=== PATIENT | female | born 1970 | race Caucasian/White ===

== ENCOUNTER 2017-12-12 06:55 | Day surgery (SDC) | payer BC ==
[~2017-12-12 06:55] MED LIST: Cefuroxime 10 MG/ML SYRINGE EYELF SCH; Lidocaine 1% PF 2 ML SDV INJECT SCH; Pilocarpine 4% Ophth Soln 15 ML Bot EYELF SCH
[2017-12-12] MEDS: Polymyxin B/Trimethoprim 10 ML Bottle EYELF SCH ×3 (07:13→08:36)
[2017-12-12] MEDS: Brimonidine 0.2% Ophth Soln 5 ML Bottle EYELF SCH ×3 (07:16→08:36)
[2017-12-12] MEDS: Phenylephrine 2.5% Ophth Soln 2 ML Bot EYELF SCH ×7 (07:20→08:22)
[2017-12-12] MEDS: Tropicamide 1% Ophth Soln 15 ML Bottle EYELF SCH ×5 (07:25→08:23)
--- NOTE | 2017-12-12 07:32 | PCM.PREANE ---
Preanesthetic Assessment - Anesthesia/Transfusion/Family Hx Anesthesia History: Prior Anesthesia Without Reaction Family History of Anesthesia Reaction: No - Review of Systems General: No Symptoms Pulmonary: No Symptoms, Other (RAYA, CPAP use nightly) Cardiovascular: No Symptoms, Other (Hypertension) Gastrointestinal: No Symptoms Neurological: No Symptoms Other: Reports: Thyroid Problems - Physical Assessment NPO Status Date: 12/11/17 NPO Status Time: 20:00 O2 Sat by Pulse Oximetry: 97 Respiratory Rate: 16 Vital Signs: Last Vital Signs Temp 36.3 C 12/12/17 07:00 Pulse 69 12/12/17 07:00 Resp 16 12/12/17 07:00 BP 134/70 12/12/17 07:00 Pulse Ox 97 12/12/17 07:00 Height: 1.6 m Weight: 85.729 kg ASA Class: 2 Mental Status: Alert & Oriented x3 Airway Class: Mallampati = 1 Dentition: Reports: Normal Dentition Thyro-Mental Finger Breadths: 1 Mouth Opening Finger Breadths: 3 ROM/Head Extension: Full Lungs: Clear to Auscultation, Normal Respiratory Effort Cardiovascular: Regular Rate, Regular Rhythm - Allergies Allergies/Adverse Reactions: Allergies Allergy/AdvReac Type Severity Reaction Status Date / Time codeine Allergy Other Verified 12/11/17 13:37 - Acknowledgements Anesthesia Type Planned: MAC Pt an Appropriate Candidate for the Planned Anesthesia: Yes Alternatives and Risks of Anesthesia Discussed w Pt/Guardian: Yes Pt/Guardian Understands and Agrees with Anesthesia Plan: Yes PreAnesthesia Questionnaire - HOME MEDS Home Medications: Home Meds Levothyroxine Sodium [Synthroid] 137 mcg PO DAILY 12/11/17 [History] Lisinopril 5 mg PO DAILY 12/11/17 [History] hydroCHLOROthiazide [Hydrochlorothiazide] 25 mg PO DAILY 12/11/17 [History] - CURRENT (IN HOUSE) MEDS Current Meds: Current Medications Brimonidine Tartrate (Alphagan 0.2% [facility]) 0 ml EYELF ASDIRECTED LESLEE Stop: 12/12/17 18:00 Last Admin: 12/12/17 07:16 Dose: 1 drop Cefuroxime Sodium (Zinacef) 0 mg EYELF ASDIRECTED LESLEE Stop: 12/12/17 18:00 Lidocaine HCl (Xylocaine-Mpf 1%) 0 ml INJECT ASDIRECTED LESLEE Stop: 12/12/17 18:00 Phenylephrine HCl (Star-Synephrine 2.5% Ophth Soln) 0 ml EYELF ASDIRECTED LESLEE Stop: 12/12/17 18:00 Last Admin: 12/12/17 07:20 Dose: 1 drop Pilocarpine HCl (Pilocar 4% Ophth Soln) 0 ml EYELF ASDIRECTED LESLEE Stop: 12/12/17 18:00 Polymyxin/Trimethoprim Sulfate (Polytrim Ophth Soln) 0 ml EYELF ASDIRECTED LESLEE Stop: 12/12/17 18:00 Last Admin: 12/12/17 07:13 Dose: 1 drop Tetracaine HCl (Tetracaine 0.5% Steri-Unit Ebony) 0 ml EYELF ASDIRECTED LESLEE Stop: 12/12/17 18:00 Tropicamide (Mydriacyl 1% Ophth Soln) 0 ml EYELF ASDIRECTED LESLEE Stop: 12/12/17 18:00 Last Admin: 12/12/17 07:25 Dose: 1 drop
[2017-12-12] MEDS: Tetracaine HCl/PF 0.5% 4 ML Bottle EYELF SCH ×4 (08:10→08:28)
--- NOTE | 2017-12-12 08:42 | PCM48HPAN ---
Post Anesthesia Note - EVALUATION WITHIN 48HRS OF ANESTHETIC Vital Signs in Normal Range: Yes Patient Participated in Evaluation: Yes Respiratory Function Stable: Yes Airway Patent: Yes Cardiovascular Function Stable: Yes Hydration Status Stable: Yes Pain Control Satisfactory: Yes Nausea and Vomiting Control Satisfactory: Yes Mental Status Recovered: Yes
== END 2017-12-12 08:47 | disposition home or self-care (01) ==
LOC: JD.SDS 06:55
PROVIDERS: ATTEND Ophthalmology
DX: H25.813 Combined forms of age-related cataract, bilateral (principal); H02.831 Dermatochalasis of right upper eyelid; H02.834 Dermatochalasis of left upper eyelid; H16.103 Unspecified superficial keratitis, bilateral; H16.223 Keratoconjunctivitis sicca, not specified as Sjogren's, bilateral; I10 Essential (primary) hypertension; E07.9 Disorder of thyroid, unspecified; Z79.899 Other long term (current) drug therapy; Z87.891 Personal history of nicotine dependence; Z83.518 Family history of other specified eye disorder
CPT/HCPCS: 66984; A9270; C1780; J0697; J2001

== ENCOUNTER 2021-12-06 09:05 | Day surgery (SDC) | payer BC ==
[~2021-12-06 09:05] MED LIST changes: -Cefuroxime 10 MG/ML SYRINGE EYELF SCH; +Lactated Ringers 1,000 ML IV SCH; -Lidocaine 1% PF 2 ML SDV INJECT SCH; +Lidocaine 1%/Sod Bicarbonate in NS 8.4% 1 ML Syringe IDERM PRN; +Morphine 8 MG, EPINEPHrine 0.3 MG, Cefuroxime 750 MG, Ketorolac 30 MG, Sodium Chloride ... PRN; -Pilocarpine 4% Ophth Soln 15 ML Bot EYELF SCH; +Sodium Chloride 0.9% 10 ML Syringe FLUSH PRN; +Sodium Chloride 0.9% 10 ML Syringe FLUSH SCH; +ePHEDrine 50 MG/ML SDV ONE
[2021-12-06] MEDS ORDERED: Propofol 200 MG/20 ML SDV ONE ×3 (09:18→12:14)
[2021-12-06] MEDS ORDERED: fentaNYL 100 MCG/2 ML SDV ONE (09:19)
[2021-12-06] MEDS ORDERED: Lidocaine 1% 4 ML ONE (09:19)
[2021-12-06] MEDS ORDERED: Midazolam 1 MG/ML 2 ML SDV ONE (09:19)
[2021-12-06] MEDS ORDERED: ceFAZolin 2 GM Vial ONE (09:19)
[2021-12-06] MEDS ORDERED: oxyCODONE ER 10 MG TAB.ER PO ONE (09:29)
[2021-12-06] MEDS ORDERED: Acetaminophen 325 MG Tab PO ONE (09:31)
[2021-12-06] MEDS ORDERED: Pregabalin 25 MG Cap PO ONE (09:31)
[2021-12-06] MEDS ORDERED: Ropivacaine 0.5% 5 MG/ML 30 ML SDV ONE (09:36)
[2021-12-06] MEDS ORDERED: EPINEPHrine 1 MG/ML SDV ONE (09:37)
[2021-12-06] MEDS ORDERED: Vancomycin 1 GM SDV ONE (09:38)
[2021-12-06] MEDS ORDERED: Lidocaine 1% 5 ML VIAL ONE (11:06)
[2021-12-06] MEDS ORDERED: Lactated Ringers 1,000 ML ONE (11:21)
[2021-12-06] MEDS ORDERED: diphenhydrAMINE 50 MG/ML SDV IVPUSH PRN (11:33)
[2021-12-06] MEDS ORDERED: Ondansetron 4 MG/2 ML SDV IVPUSH PRN (11:33)
[2021-12-06] MEDS ORDERED: fentaNYL 100 MCG/2 ML SDV IVPUSH PRN (11:33)
[2021-12-06] MEDS ORDERED: Ketorolac 30 MG/ML SDV ONE (11:55)
[2021-12-06] MEDS ORDERED: Ondansetron 4 MG/2 ML SDV ONE (11:55)
[2021-12-06] MEDS ORDERED: oxyCODONE 5 MG Tab PO ONE (14:45)
== END 2021-12-06 16:06 | disposition home or self-care (01) ==
LOC: JD.SDS 09:05
PROVIDERS: ATTEND Orthopaedic Surgery
DX: M17.12 Unilateral primary osteoarthritis, left knee (principal); I10 Essential (primary) hypertension; Z88.5 Allergy status to narcotic agent; E03.9 Hypothyroidism, unspecified; K21.9 Gastro-esophageal reflux disease without esophagitis; G47.33 Obstructive sleep apnea (adult) (pediatric); Z79.899 Other long term (current) drug therapy; Z98.890 Other specified postprocedural states; Z87.891 Personal history of nicotine dependence
CPT/HCPCS: 0055T; 27447; 36415; 73560; 80048; 97116; 97161; A9270; C1713; C1776; J0171; J0690; J0697; J1885; J2250; J2270; J2405; J2704; J2795; J3010; J3370; J7120; 01402; 64450; 76942

== ENCOUNTER → 2022-05-24 | Day surgery (SDC) | payer BC ==
[~2022-05-24] MED LIST changes: +Dexamethasone 4 MG/ML 5 ML MDV ONE; +HYDROmorphone 0.5 MG/0.5 ML Syringe IVPUSH PRN; +Ketorolac 30 MG/ML SDV ONE; +Lidocaine 1% 4 ML ONE; +Lidocaine 1% with EPINEPHrine 1:100,000 20 ML MDV ONE; +Midazolam 1 MG/ML 2 ML SDV ONE; -Morphine 8 MG, EPINEPHrine 0.3 MG, Cefuroxime 750 MG, Ketorolac 30 MG, Sodium Chloride ... PRN; +Ondansetron 4 MG/2 ML SDV IVPUSH PRN; +Ondansetron 4 MG/2 ML SDV ONE; +Propofol 200 MG/20 ML SDV ONE; +ceFAZolin 2 GM Vial ONE; -ePHEDrine 50 MG/ML SDV ONE; +fentaNYL 100 MCG/2 ML SDV IVPUSH PRN; +fentaNYL 100 MCG/2 ML SDV ONE
== END | disposition home or self-care (01) ==
LOC: JD.SDS 07:29
PROVIDERS: ATTEND Obstetrics & Gynecology
DX: N72 Inflammatory disease of cervix uteri (principal); I10 Essential (primary) hypertension; E03.9 Hypothyroidism, unspecified; F41.9 Anxiety disorder, unspecified; G47.33 Obstructive sleep apnea (adult) (pediatric); E78.00 Pure hypercholesterolemia, unspecified; Z86.001 Personal history of in-situ neoplasm of cervix uteri; Z98.890 Other specified postprocedural states; Z87.891 Personal history of nicotine dependence; Z79.899 Other long term (current) drug therapy; Z88.5 Allergy status to narcotic agent
CPT/HCPCS: 57520; 81025; J0690; J1100; J1885; J2250; J2405; J2704; J3010; J7120; 00948; J3490

== ENCOUNTER → 2022-12-08 | Day surgery (SDC) | payer BC ==
[~2022-12-08] MED LIST changes: +Acetaminophen 325 MG Tab PO SCH; +Cyclobenzaprine 10 MG Tab PO PRN; +Dexmedetomidine 200 MCG/2 ML SDV ONE; +EPINEPHrine 1 MG/ML SDV ONE; +HYDROmorphone 0.5 MG/0.5 ML Syringe ONE; +Ketamine 200 MG/20 ML MDV ONE; +Lactated Ringers 1,000 ML IV ONE; +Lactated Ringers 1,000 ML ONE; -Lidocaine 1% 4 ML ONE; +Lidocaine 1% 5 ML VIAL ONE; -Lidocaine 1% with EPINEPHrine 1:100,000 20 ML MDV ONE; -Lidocaine 1%/Sod Bicarbonate in NS 8.4% 1 ML Syringe IDERM PRN; +Pregabalin 25 MG Cap PO SCH; +Ropivacaine 0.5% 5 MG/ML 30 ML SDV ONE; +Tranexamic Acid 1,000 MG/10 ML Vial ONE; +Vancomycin 1 GM SDV ONE; +ePHEDrine 50 MG/ML SDV ONE; +fentaNYL 250 MCG/5 ML SDV ONE; +oxyCODONE 5 MG Tab PO PRN; +oxyCODONE ER 10 MG TAB.ER PO SCH
[2022-12-08] MEDS: Morphine 8 MG, EPINEPHrine 0.3 MG, Cefuroxime 750 MG, Ketorolac 30 MG, Sodium Chloride ... PRN ×10 (08:37→13:58)
== END | disposition home or self-care (01) ==
LOC: JD.SDS 06:14
PROVIDERS: ATTEND Orthopaedic Surgery
DX: M17.11 Unilateral primary osteoarthritis, right knee (principal); E78.00 Pure hypercholesterolemia, unspecified; I10 Essential (primary) hypertension; E03.9 Hypothyroidism, unspecified; E66.9 Obesity, unspecified; F41.1 Generalized anxiety disorder; Z79.890 Hormone replacement therapy; Z79.82 Long term (current) use of aspirin; Z79.899 Other long term (current) drug therapy; Z88.5 Allergy status to narcotic agent; Z96.652 Presence of left artificial knee joint; Z87.891 Personal history of nicotine dependence; Z68.32 Body mass index [BMI] 32.0-32.9, adult
CPT/HCPCS: 0055T; 27447; 64447; 73560; 97116; 97161; A9270; C1713; C1776; J0171; J0690; J0697; J1100; J1170; J1885; J2250; J2270; J2405; J2704; J2795; J3010; J3370; J7030; J7120; 01402; J3490

== ENCOUNTER 2023-04-19 08:00 | Day surgery (SDC) | payer BC ==
[~2023-04-19 08:00] MED LIST changes: -Acetaminophen 325 MG Tab PO SCH; -Cyclobenzaprine 10 MG Tab PO PRN; -Dexamethasone 4 MG/ML 5 ML MDV ONE; -Dexmedetomidine 200 MCG/2 ML SDV ONE; -EPINEPHrine 1 MG/ML SDV ONE; -HYDROmorphone 0.5 MG/0.5 ML Syringe IVPUSH PRN; -HYDROmorphone 0.5 MG/0.5 ML Syringe ONE; -Ketamine 200 MG/20 ML MDV ONE; -Ketorolac 30 MG/ML SDV ONE; -Lactated Ringers 1,000 ML IV ONE; -Lactated Ringers 1,000 ML ONE; -Lidocaine 1% 5 ML VIAL ONE; -Midazolam 1 MG/ML 2 ML SDV ONE; -Ondansetron 4 MG/2 ML SDV IVPUSH PRN; -Ondansetron 4 MG/2 ML SDV ONE; -Pregabalin 25 MG Cap PO SCH; -Propofol 200 MG/20 ML SDV ONE; -Ropivacaine 0.5% 5 MG/ML 30 ML SDV ONE; -Tranexamic Acid 1,000 MG/10 ML Vial ONE; -Vancomycin 1 GM SDV ONE; -ceFAZolin 2 GM Vial ONE; -ePHEDrine 50 MG/ML SDV ONE; -fentaNYL 100 MCG/2 ML SDV IVPUSH PRN; -fentaNYL 100 MCG/2 ML SDV ONE; -fentaNYL 250 MCG/5 ML SDV ONE; -oxyCODONE 5 MG Tab PO PRN; -oxyCODONE ER 10 MG TAB.ER PO SCH
[2023-04-19] MEDS ORDERED: Lidocaine 1% 5 ML VIAL ONE (10:22)
[2023-04-19] MEDS ORDERED: Midazolam 1 MG/ML 2 ML SDV ONE ×2 (10:22→11:24)
[2023-04-19] MEDS ORDERED: Propofol 200 MG/20 ML SDV ONE (10:22)
[2023-04-19] MEDS ORDERED: Lidocaine 1% 10 ML MDV ONE (11:04)
[2023-04-19] MEDS ORDERED: Bupivacaine 0.25% 10 ML SDV ONE (11:04)
[2023-04-19] MEDS ORDERED: ceFAZolin 2 GM Vial ONE (11:29)
[2023-04-19] MEDS ORDERED: Ondansetron 4 MG/2 ML SDV ONE (11:31)
[2023-04-19] MEDS ORDERED: Ketorolac 30 MG/ML SDV ONE (11:31)
[2023-04-19] MEDS ORDERED: Succinylcholine 200 MG/10 ML MDV ONE (11:57)
[2023-04-19] MEDS ORDERED: fentaNYL 100 MCG/2 ML SDV ONE (11:58)
[2023-04-19] MEDS ORDERED: Rocuronium 50 MG/5 ML Vial ONE (12:00)
[2023-04-19] MEDS ORDERED: Sugammadex Sodium 200 MG/2 ML VIAL ONE (12:01)
[2023-04-19] MEDS ORDERED: ePHEDrine 50 MG/ML SDV ONE (12:04)
[2023-04-19] MEDS ORDERED: Acetaminophen/HYDROcodone 325-5 MG Tab PO ONE (14:13)
== END 2023-04-19 14:00 | disposition home or self-care (01) ==
LOC: JD.SDS 08:00
PROVIDERS: ATTEND Orthopaedic Surgery
DX: M20.5X2 Other deformities of toe(s) (acquired), left foot (principal); I10 Essential (primary) hypertension; E03.9 Hypothyroidism, unspecified; G47.33 Obstructive sleep apnea (adult) (pediatric); F41.1 Generalized anxiety disorder; E66.9 Obesity, unspecified; E78.00 Pure hypercholesterolemia, unspecified; Z87.891 Personal history of nicotine dependence; Z79.890 Hormone replacement therapy; Z79.82 Long term (current) use of aspirin; Z79.899 Other long term (current) drug therapy; Z88.5 Allergy status to narcotic agent
CPT/HCPCS: 01480; 76000; 76000-26; A9270-GY; C1713; C1769; J0330; J0690; J1885; J2250; J2405; J2704; J3010; J3490; J7120

== ENCOUNTER 2024-07-02 06:30 | Day surgery (SDC) | payer BC ==
[~2024-07-02 06:30] MED LIST changes: +Dexamethasone 4 MG/ML 5 ML MDV ONE; -Lactated Ringers 1,000 ML IV SCH; +Ondansetron 4 MG/2 ML SDV ONE
[2024-07-02] MEDS: Lactated Ringers 1,000 ML IV SCH (06:30)
[2024-07-02 06:39] LABS: HEMATOCRIT 39.8 % (37.0-47.0); HEMOGLOBIN 13.4 gm/dl (12.0-16.0); MEAN CORPUSCULAR HEMOGLOBIN 29.9 pg (28.0-32.0); MEAN CORPUSCULAR HGB CONC 33.7 g/dl (32.0-36.0); MEAN CORPUSCULAR VOLUME 88.8 fl (83.0-99.0); PLATELET COUNT,PLT 229 K/mm3 (150-400); RED BLOOD CELL COUNT 4.48 M/mm3 (4.10-5.30); WHITE BLOOD CELL COUNT,WBC 5.96 K/mm3 (3.9-11.3)
[2024-07-02] MEDS ORDERED: Propofol 200 MG/20 ML SDV ONE ×5 (06:47→08:34)
[2024-07-02] MEDS ORDERED: fentaNYL 250 MCG/5 ML SDV ONE (06:48)
[2024-07-02] MEDS ORDERED: Rocuronium 50 MG/5 ML Vial ONE (06:49)
[2024-07-02] MEDS ORDERED: ceFAZolin 2 GM Vial ONE (06:50)
[2024-07-02 06:53] LABS: ANION GAP 11.8 (5-15); BUN/CREATININE RATIO 24.3 (14-18); CALCIUM 9.6 mg/dL (8.5-10.1); CREATININE 0.7 mg/dL (0.55-1.02); EST CRCL DRUG DOSING (CG) 70.36 mL/min; POTASSIUM,K 3.8 mEq/L (3.5-5.1)
[2024-07-02 07:11] LABS: BAND PERCENT MAN 0 % (0-10); BASOPHILS PERCENT MAN 0 (0.1-1.2); EOSINOPHILS PERCENT MAN 3 % (0.7-5.8); LYMPHOCYTES PERCENT MAN 39 % (20-40); MONOCYTES PERCENT MAN 4 % (2-10); PLATELET COUNT ESTIMATE ADEQUATE
[2024-07-02] MEDS ORDERED: dexmedeTOMIDine HCl 200 MCG/2 ML SDV ONE (07:45)
[2024-07-02] MEDS ORDERED: HYDROmorphone 0.5 MG/0.5 ML Syringe ONE ×2 (07:47→07:48)
[2024-07-02] MEDS: Bupivacaine 0.5% 30 ML SDV ONE (07:58)
[2024-07-02] MEDS ORDERED: Ketorolac 30 MG/ML SDV ONE (08:17)
[2024-07-02] MEDS: EPINEPHrine 1 MG/ML SDV ONE (08:23)
[2024-07-02] MEDS: Lidocaine 1% 10 ML MDV ONE (08:23)
[2024-07-02] MEDS ORDERED: Lactated Ringers 1,000 ML ONE (08:39)
[2024-07-02] MEDS ORDERED: Ondansetron 4 MG/2 ML SDV IVPUSH PRN (09:30)
[2024-07-02] MEDS ORDERED: fentaNYL 100 MCG/2 ML SDV IVPUSH PRN (09:30)
[2024-07-02] MEDS ORDERED: Acetaminophen/oxyCODONE 325-5 MG Tab PO PRN (10:00)
== END 2024-07-02 12:15 | disposition home or self-care (01) ==
LOC: JD.SDS 06:30
PROVIDERS: ATTEND Obstetrics & Gynecology
DX: D25.9 Leiomyoma of uterus, unspecified (principal); N87.9 Dysplasia of cervix uteri, unspecified; N80.03 Adenomyosis of the uterus; N83.8 Other noninflammatory disorders of ovary, fallopian tube and broad ligament; I10 Essential (primary) hypertension; E78.00 Pure hypercholesterolemia, unspecified; E03.9 Hypothyroidism, unspecified; Z87.891 Personal history of nicotine dependence; Z79.890 Hormone replacement therapy; Z79.899 Other long term (current) drug therapy; Z88.5 Allergy status to narcotic agent
CPT/HCPCS: 36415; 58552; 80048; 81025; 85007; 85027; 86850; 86900; 86901; J0171; J0665; J0690; J1100; J1885; J2003; J2405; J2704; J3010; J7120; 00944; J3490